=== PATIENT | female | born 1990 | race Caucasian/White ===

== ENCOUNTER 2023-12-23 10:54 | Outpatient (AMB) | payer OTHER, SELFPAY ==
--- NOTE | 2023-12-23 11:08 | A.OFFPC_ITS ---
Vital Signs 12/23/23 11:09 Height 5 ft 4 in Weight 134 lb BMI 23.0 BP 108/80 Blood Pressure Location Rt brachial Position Sitting Pulse 95 Pulse Source Pulse Oximeter Pulse Oximetry (%) 99 Oxygen Delivery Method Room Air Intake Visit Reasons: In House Counsel Request PE Intake Note: Pt is here today as a New Patient for her PE: Last papsmear 08/01/23 Is last menstrual period known: Yes Last menstrual period: 12/10/23 Allergies No Known Allergies Allergy (Verified 12/23/23 11:35) Medication List - Last Reconciled 12/23/23 by Krystle Crain MD loratadine 10 mg PO DAILY PNV no.[id number] 400 mcg-35 mg- 25 mg-5 mg ( Gummies) tabs PO Tobacco use date assessed: 12/23/23 Dental Screening Dental Screen Date: 12/23/23 Did you have a dental visit in the last 12 months?: Yes Did you have a dental problem in the last 6 months where you did not have access to dental care?: No Was dental information given to patient?: Patient has dentist HPI In House Counsel Request PE HPI Details 33 year old lady , new to practice , her e to establish care and for a physical exam . She's up to date with her cervical cancer screening done at [facility] 08/01/2023 which came back negative for malignancy / intraepithelial lesion. She has seasonal allergies for which he takes loratadine as needed. She has been complaining of having frequent anxiety attacks lately, has a lot of stress at work and with family members [facility] Medical History (Updated 12/23/23 @ 11:58 by Krystle Crain MD) Family history of melanoma Family history of hypothyroidism Generalized anxiety disorder Surgical History (Updated 12/23/23 @ 12:05 by Krystle Crain MD) Hx of section Family History (Updated 12/23/23 @ 12:02 by Krystle Crain MD) Father Prostate cancer Diabetes mellitus Essential hypertension Mother Hypothyroidism (acquired) Essential hypertension Maternal Uncle Prostate cancer Paternal Aunt Skin cancer Paternal Grandmother Diabetes mellitus Social History (Updated 12/23/23 @ 12:03 by Krystle Crain MD) Housing: House Patient Tobacco Use Status: Never used Tobacco e-Cigarette/Vaping Use: Never Used service: No Current occupational status: employed Current occupation: Behavioral therapy Cognitive needs: No Hearing needs: No Vision needs: Yes Female Reproductive History Menstrual Date of last menstrual period: 12/10/23 control method: permanent sterilization Permanent Sterilization: Vasectomy Date of last pap smear: 08/01/23 Other: Sees [facility] for routine Pap and pelvic exam Questionnaire PHQ-9 Over the last 2 weeks, how often have you been bothered by any of the following problems? 1. Little interest or pleasure in doing things: not at all 2. Feeling down, depressed, or hopeless: several days 3. Trouble falling or staying asleep, or sleeping too much: not at all 4. Feeling tired or having little energy: several days 5. Poor appetite or overeating: not at all 6. Feeling bad about yourself - or that you are a failure or have let yourself or your family down: several days 7. Trouble concentrating on things, such as reading the newspaper or watching television: several days 8. Moving or speaking so slowly that other people could have noticed. Or the opposite - being so fidgety or restless that you have been moving around a lot more than usual: not at all 9. Thoughts that you would be better off or of hurting yourself in some way: not at all Total score: 4 Depression Screening Interpretation: Negative Depression Screening Done: Yes 73386 - PHQ-9 Billing: Yes Source: Developed by Drs. Camacho White, Yuliaan Villanueva, Elijah Mccall and colleagues, with an educational falguni from [facility]. Thrive Questionnaire I am a: Patient What is your living situation today?: I have a steady place to live Within the past 12 months, did the food you bought not last and you didn't have the money to get more?: Never true Within the past 12 months, did you worry whether your food would run out before you got money to buy more?: Never true Do you have trouble paying for medicines?: No Do you have trouble getting transportation to medical appointments?: No Do you have trouble paying your heating and electricity bill?: No Do you have trouble taking care of your child, family member or friend?: No Do you have trouble with day-to-day activities such as bathing, preparing meals, shopping, managing finances, etc.?: No Are you currently unemployed and looking for a job?: No Are you interested in more education?: Yes Please select the resources that you would like help with: Housing/Skilled Nursing Currently or been in a relationship where the following occur: No concerns reported THRIVE Score: 0 AUDIT C Alcohol Use Questionnaire (AUDIT-C) 1. How often do you have a drink containing alcohol?: Never Total Score: 0 MERON-7 AMB Questionnaire MERON-7 Feeling nervous, anxious, or on edge: 2 = More than half the days Not being able to stop or control worryin = More than half the days Worrying too much about different things: 2 = More than half the days Trouble relaxin = Several days Being so restless that it is hard to sit still: 1 = Several days Becoming easily annoyed or irritable: 1 = Several days Feeling afraid as if something awful might happen: 1 = Several days Total MERON-7 score (0-4 normal; 5-9 mild; 10-14 moderate; 15-21 severe): 10 Source: Developed by Drs. Camacho White, Yuliana Villanueva, Elijah Mccall and colleagues, with an educational falguni from [facility]. MERON-7 Assessment Billing MERON-7 Assessment Tool: MERON-7 Assessment 10643 Review of Systems Const Denies body aches, Denies fatigue, Denies fever(s), Denies headache(s) and Denies weakness Eyes Details: myopia - [facility] Denies change in vision, Denies eye discharge and Denies itchy eyes ENT Denies dizziness, Denies headache(s) and Denies nasal congestion Card Denies chest pain, Denies lightheadedness, Denies palpitations and Denies dyspnea Resp Denies chest congestion, Denies cough, Denies dyspnea and Denies wheezing GI Denies abdominal pain, Denies change in bowel habits and Denies heartburn Denies hematuria, Denies urinary frequency, Denies dysuria and Denies urinary urgency Musc Reports no additional complaints Skin/Breast Denies breast pain, Denies breast mass, Denies lesions and Denies rash Neuro Denies dizziness, Denies headache(s) and Denies weakness Psych Reports as per HPI Endo Denies fatigue, Denies polydipsia, Denies polyuria and Denies palpitations Joao/Lymph Denies easy bruising Aller/Immun Denies itchy eyes, Denies seasonal rhinorrhea and Denies wheezing Physical exam (Primary Care) Vital Signs: Last Vital Signs Pulse 95 12/23/23 11:09 BP 108/80 12/23/23 11:09 Pulse Ox 99 12/23/23 11:09 Oxygen Delivery Method Room Air 12/23/23 11:09 BMI result Body Mass Index 23.0 Tobacco/Smoking Status: Tobacco use Status Tobacco use date assessed 12/23/23 12/23/23 11:15 Patient Tobacco Use Status Never used Tobacco 12/23/23 12:03 e-Cigarette/Vaping Use Never Used 12/23/23 12:03 PHQ-9: PHQ-9 Score PHQ-9: Total score 4 12/26/23 01:14 Depression Screening Interpretation: Negative Currently or been in a relationship where the following occur: No concerns reported Const General: no acute distress and alert Orientation/consciousness: patient oriented x3 HENMT Head: Yes normocephalic Ears: external ears normal, TM's normal bilaterally and EAC's normal General nose exam: Normal external nose present Face and sinus: Yes face symmetric Mouth: Normal oral and palatal mucosa present, tongue normal, oropharynx normal and moist mucous membranes Eyes General: appearance normal, both eyes and all related structures Eyelids: Yes eyelids normal Conjunctivae: conjunctivae normal Sclerae: sclerae normal Pupils: Equal, round and reactive pupils present EOM: EOMs intact bilaterally Neck Neck: Yes full ROM, Yes no lymphadenopathy and Yes supple Thyroid: Thyroid normal Chest Breast/axilla palpation: normal palpation of the breasts Resp Effort & Inspection: normal respiratory effort and able to speak in complete sentences Auscultation: clear to auscultation bilaterally Cardio Rate: regular rate Rhythm: regular rhythm Heart sounds: S1 normal heart sound present and S2 normal heart sound present GI Palpation (GI): Soft to palpation, nontender, no guarding and no masses Auscultation: normal bowel sounds General: Yes no CVA tenderness Back/Spine/Pelvis Back: no CVA tenderness and No back tenderness Skin General skin exam: no rashes or lesions noted Neuro General: patient oriented x3, gait normal, moves all extremities, Normal light touch and pain sensation, no focal motor deficits and CN's II-XI intact bilaterally Cranial nerves: Yes Equal, round and reactive pupils present Cognition (Neuro): normal cognition Gait exam (Neuro): Normal gait present Motor exam (neuro): 5/5 motor strength present throughout Extrem General: Yes normal to inspection, Yes full ROM, Yes no joint enlargement, Yes no pedal edema and Yes normal gait Psych Appearance: grossly normal and well kempt Mental Status: mental status grossly normal Speech and movement: Normal speech and movement present Affect: normal affect Attitude: cooperative Thought process: Normal thought process present Thought content: Normal thought content present Assessment and Plan Assessment & Plan (1) Annual visit for general adult medical examination with abnormal findings: Code(s): Z00.01 - Encounter for general adult medical examination with abnormal findings Plan: Will check appropriate labs. Recommended dental visit every 6 months and regular eye exams, at least every 2 years. Take adequate calcium in diet and vitamin-D 3 at 2000 IU per cap once a day, in addition to weight-bearing exercises to help maintain good muscle tone and weight control. Instructed to do self-breast exam, and recommended to get yearly mammogram, starting at age 40. Goes to [facility] for routine Pap and pelvic exam which is currently up-to-date. Has had COVID vaccines in the past but does not want to get the booster, declines flu vaccine, up-to-date with her Tdap (2) Generalized anxiety disorder: Code(s): F41.1 - Generalized anxiety disorder Plan: Drooling, 50 mg per tablet, advised to initially take half a tablet or 25 mg once a day for the 1st week, and increase dose to a whole tablet or 50 mg on the 2nd week if needed patient declines referral for counseling, will see her back for follow-up in of January. (3) Family history of hypothyroidism: Code(s): Z83.49 - Family history of other endocrine, nutritional and metabolic diseases Plan: Ordered a TSH and free T4 levels patient currently without any symptoms (4) Family history of melanoma: Comment: mother Code(s): Z80.8 - Family history of malignant neoplasm of other organs or systems Plan: Referred to dermatology for her routine skin cancer screening (5) Screening for Malignant Neoplasm of Skin: Code(s): Z12.83 - Encounter for screening for malignant neoplasm of skin Plan: Referred to dermatology for routine skin cancer screening Orders: Orders TSH reflex Free T4 12/23/23 F41.1 - Generalized anxiety disorder, Z13.1 - Encounter for screening for diabetes mellitus, Z13.220 - Encounter for screening for lipoid disorders, Z80.8 - Family history of malignant neoplasm of other organs or systems, Z83.49 - Family history of other endocrine, nutritional and metabolic diseases Complete Blood Count Auto Diff 12/23/23 F41.1 - Generalized anxiety disorder, Z13.1 - Encounter for screening for diabetes mellitus, Z13.220 - Encounter for screening for lipoid disorders, Z80.8 - Family history of malignant neoplasm of other organs or systems, Z83.49 - Family history of other endocrine, nutritional and metabolic diseases Lipid Panel 12/23/23 F41.1 - Generalized anxiety disorder, Z13.1 - Encounter for screening for diabetes mellitus, Z13.220 - Encounter for screening for lipoid disorders, Z80.8 - Family history of malignant neoplasm of other organs or systems, Z83.49 - Family history of other endocrine, nutritional and metabolic diseases Comprehensive [place]. Panel Fast 12/23/23 F41.1 - Generalized anxiety disorder, Z13.1 - Encounter for screening for diabetes mellitus, Z13.220 - Encounter for screening for lipoid disorders, Z80.8 - Family history of malignant neoplasm of other organs or systems, Z83.49 - Family history of other endocrine, nutritional and metabolic diseases Vitamin D 25-OH Total 12/23/23 F41.1 - Generalized anxiety disorder, Z13.1 - Encounter for screening for diabetes mellitus, Z13.220 - Encounter for screening for lipoid disorders, Z80.8 - Family history of malignant neoplasm of other organs or systems, Z83.49 - Family history of other endocrine, nutritional and metabolic diseases Referrals Dermatology Referral Z12.83 - Encounter for screening for malignant neoplasm of skin, Z80.8 - Family history of malignant neoplasm of other organs or systems Medications: New sertraline 50 mg PO DAILY 30 tabs 1RF F41.1 - Generalized anxiety disorder, Z00.01 - Encounter for general adult medical examination with abnormal findings Coding Level of Care Code New Pt Prev Care 18-39yr([id number] Diagnoses Annual visit for general adult medical examination with abnormal findings Z00.01 Generalized anxiety disorder F41.1 Family history of hypothyroidism Z83.49 Family history of melanoma Z80.8 Screening for Malignant Neoplasm of Skin Z12.83 Additional Codes MERON-7 Assessment Billing - MERON-7 Assessment Tool: MERON-7 Assessment 53159 ([id number])
[2023-12-23 11:09] VITALS: BP 108/80; PULSE 95; O2SAT 99; BMI 23.0
== END 2023-12-23 12:19 | disposition home or self-care (01) ==
PROVIDERS: PCP Internal Medicine; Visit Provider Internal Medicine
DX: Z00.00 Encounter for general adult medical examination without abnormal findings (principal); F41.1 Generalized anxiety disorder; Z83.49 Family history of other endocrine, nutritional and metabolic diseases; Z80.8 Family history of malignant neoplasm of other organs or systems; Z12.83 Encounter for screening for malignant neoplasm of skin
CPT/HCPCS: 99385

== ENCOUNTER 2024-01-06 06:01 | Outpatient (REF) | payer OTHER, SELFPAY ==
[2024-01-06 10:20] LABS: MANUAL DIFF FLAG NO
[2024-01-06 10:23] LABS: Basophils Percent Auto 0.8 % (0-2); Eosinophils Absolute Auto 0.1 X10*3/uL (0.0-0.4); Eosinophils Percent Auto 1.9 % (0-4); Hematocrit 37.7 % (37.0-47.0); Hemoglobin 12.3 g/dl (12.0-16.0); Imm Gran Abs Auto 0.02 X10*3/uL (0.00-0.03); Imm Gran Pct Auto 0.4 % (0.0-0.4); Lymphocytes Absolute Auto 1.9 X10*3/uL (1.2-4.9); Lymphocytes Percent Auto 37.4 % (20-40); Mean Corpuscular HGB Conc 32.6 g/dl (31.0-35.0); Mean Corpuscular Hemoglobin 29.9 pg (27.0-33.0); Mean Corpuscular Volume 91.7 fL (80.0-98.0); Mean Platelet Volume 11.2 fL (9.4-12.3); Monocytes Absolute Auto 0.5 X10*3/uL (0.1-1.2); Monocytes Percent Auto 10.2 % (2-11); Neutrophils Absolute Auto 2.6 x10*3/uL (2.0-8.3); Neutrophils Percent Auto 49.3 % (45-73); Platelet Count 268 X10*3/uL (160-400); Red Blood Count 4.11 X10*6/uL (4.20-5.50); White Blood Count 5.2 X10*3/uL (4.8-10.8)
[2024-01-06 10:41] LABS: Alanine Aminotransferase 19 U/L (0-31); Albumin Level 4.4 g/dL (3.5-5.0); Alkaline Phosphatase 73 U/L (39-117); Anion Gap 10 (12-20); Aspartate Amino Transferase 18 U/L (5-31); Bilirubin Total 0.7 mg/dL (0.0-1.0); Blood Urea Nitrogen 14 mg/dL (9-16); Calcium 9.3 mg/dL (8.4-10.2); Carbon Dioxide 28 mmol/L (22-29); Chloride 104 mmol/L (96-108); Cholesterol 127 mg/dL (<200); Estimated Glomerular Filt Rate > 60; Glucose Fasting 81 mg/dL (60-99); HDL Cholesterol 50 mg/dL (>40); LDL Cholesterol Calculated 68 mg/dL (<100); Sodium 138 mmol/L (135-145); Total Protein 7.2 g/dL (6.5-8.0); Triglycerides 48 mg/dL (<150)
[2024-01-06 11:03] LABS: TSH reflex Free T4 1.82 uIU/mL (0.32-4.0)
== END 2024-01-06 06:02 | disposition home or self-care (01) ==
LOC: HO.HMGCLDS 06:01
PROVIDERS: PCP Internal Medicine; Visit Provider Internal Medicine
DX: F41.1 Generalized anxiety disorder (principal); Z83.49 Family history of other endocrine, nutritional and metabolic diseases; Z80.8 Family history of malignant neoplasm of other organs or systems; Z13.220 Encounter for screening for lipoid disorders; Z13.1 Encounter for screening for diabetes mellitus
CPT/HCPCS: 36415; 80053; 80061; 82306; 84443; 85025

== ENCOUNTER 2024-01-16 08:28 | Outpatient (AMB) | payer OTHER, SELFPAY ==
--- NOTE | 2024-01-16 08:33 | MHC.PC.OV ---
Intake Visit Reasons: follow up Anxiety Gsa Coordinator Required: No Allergies No Known Allergies Allergy (Verified 01/16/24 08:53) Medication List - Last Reconciled 01/16/24 by Krystle Crain MD loratadine 10 mg PO DAILY PNV no.[id number] 400 mcg-35 mg- 25 mg-5 mg ( Gummies) tabs PO sertraline 50 mg PO DAILY Tobacco use date assessed: 12/23/23 Dental Screening Dental Screen Date: 12/23/23 HPI follow up Anxiety HPI Details Magda is here for follow-up regarding her anxiety disorder. She was started on sertraline 50 mg once a day, initially has been taking half a tablet once a day but still feels some anxiety creeping in every now and then so she increased her dose to a full dose of 50 mg on January 05. She states that she has been feeling better on this dose, but still gets occasional sleepiness when taking it in the morning. She has been going out , doing her runs, able to go out with the kids with a being so stressed out. Would like to stay on the same dose. [facility] Medical History Family history of melanoma Family history of hypothyroidism Generalized anxiety disorder Surgical History Hx of section Family History Father Prostate cancer Diabetes mellitus Essential hypertension Mother Hypothyroidism (acquired) Essential hypertension Maternal Uncle Prostate cancer Paternal Aunt Skin cancer Paternal Grandmother Diabetes mellitus Social History Housing: House Patient Tobacco Use Status: Never used Tobacco e-Cigarette/Vaping Use: Never Used service: No Current occupational status: employed Current occupation: Behavioral therapy Cognitive needs: No Hearing needs: No Vision needs: Yes Questionnaire PHQ-9 Over the last 2 weeks, how often have you been bothered by any of the following problems? 1. Little interest or pleasure in doing things: not at all 2. Feeling down, depressed, or hopeless: several days 3. Trouble falling or staying asleep, or sleeping too much: not at all 4. Feeling tired or having little energy: several days 5. Poor appetite or overeating: not at all 6. Feeling bad about yourself - or that you are a failure or have let yourself or your family down: several days 7. Trouble concentrating on things, such as reading the newspaper or watching television: several days 8. Moving or speaking so slowly that other people could have noticed. Or the opposite - being so fidgety or restless that you have been moving around a lot more than usual: not at all 9. Thoughts that you would be better off or of hurting yourself in some way: not at all Total score: 4 Depression Screening Interpretation: Negative Depression Screening Done: Yes 72606 - PHQ-9 Billing: Yes Source: Developed by Drs. Camacho White, Yuliana Villanueva, Elijah Mccall and colleagues, with an educational falguni from [employer]. Thrive Questionnaire Date Thrive assessed: 01/16/24 I am a: Patient What is your living situation today?: I have a steady place to live Within the past 12 months, did the food you bought not last and you didn't have the money to get more?: Never true Within the past 12 months, did you worry whether your food would run out before you got money to buy more?: Never true Do you have trouble paying for medicines?: No Do you have trouble getting transportation to medical appointments?: No Do you have trouble paying your heating and electricity bill?: No Do you have trouble taking care of your child, family member or friend?: No Do you have trouble with day-to-day activities such as bathing, preparing meals, shopping, managing finances, etc.?: No Are you currently unemployed and looking for a job?: No Are you interested in more education?: Yes Please select the resources that you would like help with: Housing/Retirement Currently or been in a relationship where the following occur: No concerns reported THRIVE Score: 0 AUDIT C Alcohol Use Questionnaire (AUDIT-C) 1. How often do you have a drink containing alcohol?: Never 3. How often do you have six or more drinks on one occasion?: Never Total Score: 0 Score Reviewed/Action Taken: Yes MERON-7 AMB Questionnaire MERON-7 Date MERON - 7 assessed: 01/16/24 Feeling nervous, anxious, or on edge: 1 = Several days Not being able to stop or control worryin = Not at all Worrying too much about different things: 1 = Several days Trouble relaxin = Not at all Being so restless that it is hard to sit still: 0 = Not at all Becoming easily annoyed or irritable: 0 = Not at all Feeling afraid as if something awful might happen: 0 = Not at all Total MERON-7 score (0-4 normal; 5-9 mild; 10-14 moderate; 15-21 severe): 2 Source: Developed by Drs. Camacho White, Yuliana Villanueva, Elijah Mccall and colleagues, with an educational falguni from [employer]. MERON-7 Assessment Billing MERON-7 Assessment Tool: MERON-7 Assessment 11624 Review of Systems Const Denies body aches, Denies fatigue, Denies fever(s) and Denies headache(s) Eyes Details: myopia - [facility] Denies change in vision ENT Denies dizziness, Denies headache(s) and Denies nasal congestion Card Denies chest pain, Denies lightheadedness, Denies palpitations and Denies dyspnea Resp Denies chest congestion, Denies cough, Denies dyspnea and Denies wheezing GI Denies abdominal pain, Denies change in bowel habits and Denies heartburn Reports no additional complaints Musc Reports no additional complaints Neuro Denies dizziness and Denies headache(s) Psych Reports as per HPI Endo Denies fatigue, Denies polydipsia, Denies polyuria and Denies palpitations Aller/Immun Denies seasonal rhinorrhea and Denies wheezing Physical exam (Primary Care) Tobacco/Smoking Status: Tobacco use Status Tobacco use date assessed 12/23/23 01/16/24 08:36 Patient Tobacco Use Status Never used Tobacco 01/16/24 08:36 e-Cigarette/Vaping Use Never Used 01/16/24 08:36 PHQ-9: PHQ-9 Score PHQ-9: Total score 4 01/16/24 08:36 Depression Screening Interpretation: Negative Thrive Assessment: Date of Thrive Assessment Date Thrive assessed 01/16/24 01/16/24 08:36 Currently or been in a relationship where the following occur: No concerns reported Telehealth Telehealth Telehealth Platform: [employer] Location of provider rendering services: practice address Location of patient: address on file Patient Identification confirmed using: Name, : Yes Telehealth method: video Patient verbally consented to treatment: Yes Patient verbally consented to billing insurance company: Yes Patient informed of any privacy concerns related to visit: Yes Minutes spent on Phone/Video with Pt.: 15 Assessment and Plan Assessment & Plan (1) Generalized anxiety disorder: Code(s): F41.1 - Generalized anxiety disorder Plan: Patient feeling better, with anxiety controlled on sertraline 50 mg per tablet, will continue on same dose. Will see her back for telehealth in 3 months for follow-up Medications: Refilled sertraline 50 mg PO DAILY 90 tabs 1RF F41.1 - Generalized anxiety disorder, Z00.01 - Encounter for general adult medical examination with abnormal findings Coding Level of Care Code Tele Est Pt Level 3 (03008) Diagnoses Generalized anxiety disorder F41.1 Additional Codes MERON-7 Assessment Billing - MERON-7 Assessment Tool: MERON-7 Assessment 97512 ([id number])
== END 2024-01-16 13:25 | disposition home or self-care (01) ==
LOC: HO.HMGC 08:28
PROVIDERS: PCP Internal Medicine; Visit Provider Internal Medicine
DX: F41.1 Generalized anxiety disorder (principal)
CPT/HCPCS: 96127; 99213

== ENCOUNTER 2024-04-16 08:47 | Outpatient (AMB) | payer OTHER, SELFPAY ==
--- NOTE | 2024-04-16 08:46 | MHC.PC.OV ---
Intake Visit Reasons: F/U Anxiety Intake Note: Pt is having a telehealth visit to f/u anxiety Allergies No Known Allergies Allergy (Verified 04/16/24 08:54) Medication List - Last Reconciled 04/16/24 by Krystle Crain MD loratadine 10 mg PO DAILY PNV no.[id number] 400 mcg-35 mg- 25 mg-5 mg ( Gummies) tabs PO sertraline 50 mg PO DAILY Tobacco use date assessed: 04/16/24 Dental Screening Dental Screen Date: 04/16/24 Did you have a dental visit in the last 12 months?: Yes Did you have a dental problem in the last 6 months where you did not have access to dental care?: No Was dental information given to patient?: Patient has dentist HPI F/U Anxiety HPI Details 33-year-old lady here today for follow-up regarding her generalized anxiety disorder. She has been taking sertraline 50 mg 1 tablet once a day which has been helping controlled her anxiety. She was taking it at night, but was having difficulty sleeping with it , and now has switched it back again to taking it in the morning, which has been helping. She already filled her last refill it and would need an another prescription sent to her pharmacy. Has been feeling well with no complaints at present time. [facility] Medical History Family history of melanoma Family history of hypothyroidism Generalized anxiety disorder Surgical History Hx of section Family History Father Prostate cancer Diabetes mellitus Essential hypertension Mother Hypothyroidism (acquired) Essential hypertension Maternal Uncle Prostate cancer Paternal Aunt Skin cancer Paternal Grandmother Diabetes mellitus Social History Housing: House Patient Tobacco Use Status: Never used Tobacco e-Cigarette/Vaping Use: Never Used service: No Current occupational status: employed Current occupation: Behavioral therapy Cognitive needs: No Hearing needs: No Vision needs: Yes Questionnaire Thrive Questionnaire Date Thrive assessed: 01/16/24 MERON-7 AMB Questionnaire MERON-7 Date MERON - 7 assessed: 04/16/24 Feeling nervous, anxious, or on edge: 0 = Not at all Not being able to stop or control worryin = Not at all Worrying too much about different things: 0 = Not at all Trouble relaxin = Not at all Being so restless that it is hard to sit still: 0 = Not at all Becoming easily annoyed or irritable: 0 = Not at all Feeling afraid as if something awful might happen: 0 = Not at all Total MERON-7 score (0-4 normal; 5-9 mild; 10-14 moderate; 15-21 severe): 0 Source: Developed by Drs. Camacho White, Yuliana Villanueva, Elijah Mccall and colleagues, with an educational falguni from [employer]. MERON-7 Assessment Billing MERON-7 Assessment Tool: MERON-7 Assessment 63015 Review of Systems Const Denies body aches, Denies fatigue and Denies fever(s) Eyes Details: myopia - [facility] Denies change in vision ENT Reports no additional complaints Card Denies chest pain, Denies lightheadedness, Denies palpitations and Denies dyspnea Resp Denies chest congestion, Denies cough, Denies dyspnea and Denies wheezing GI Denies abdominal pain, Denies change in bowel habits and Denies heartburn Reports no additional complaints Musc Reports no additional complaints Neuro Reports no additional complaints Psych Reports as per HPI Endo Denies fatigue, Denies polydipsia, Denies polyuria and Denies palpitations Aller/Immun Denies seasonal rhinorrhea and Denies wheezing Physical exam (Primary Care) Tobacco/Smoking Status: Tobacco use Status Tobacco use date assessed 04/16/24 04/16/24 08:47 Patient Tobacco Use Status Never used Tobacco 04/16/24 08:47 e-Cigarette/Vaping Use Never Used 04/16/24 08:47 Thrive Assessment: Date of Thrive Assessment Date Thrive assessed 01/16/24 04/16/24 08:47 Telehealth Telehealth Telehealth Platform: [facility] Location of provider rendering services: practice address Location of patient: address on file Patient Identification confirmed using: Name, : Yes Telehealth method: video Patient verbally consented to treatment: Yes Patient verbally consented to billing insurance company: Yes Patient informed of any privacy concerns related to visit: Yes Minutes spent on Phone/Video with Pt.: 15 Coding Level of Care Code Tele Est Pt Level 3 (28619) Diagnoses Generalized anxiety disorder F41.1 Additional Codes MERON-7 Assessment Billing - MERON-7 Assessment Tool: MERON-7 Assessment 03112 ([id number]) Assessment & Plan Assessment & Plan (1) Generalized anxiety disorder: Code(s): F41.1 - Generalized anxiety disorder Category: Medical Plan: Currently stable and controlled on sertraline 50 mg per tablet taken once a day in a.m.. Will continue with current dose. Refill sent. Will see her back next year on her next physical exam in 01/2025
== END 2024-04-16 09:40 | disposition home or self-care (01) ==
LOC: HO.HMCC 08:47
PROVIDERS: PCP Internal Medicine; Visit Provider Internal Medicine
DX: F41.1 Generalized anxiety disorder (principal)

== ENCOUNTER → 2024-04-16 08:47 | Outpatient (BNVA) | payer OTHER, SELFPAY | PROVIDERS: PCP Internal Medicine; Visit Provider Internal Medicine | DX: F41.1 Generalized anxiety disorder (principal); Z79.899 Other long term (current) drug therapy | CPT/HCPCS: 96127 ==

== ENCOUNTER 2025-02-03 10:55 | Outpatient (AMB) | payer OTHER, SELFPAY ==
--- NOTE | 2025-02-03 11:38 | A.OFFPC_ITS ---
Vital Signs 02/03/25 11:39 Height 5 ft 4 in Weight 139 lb BMI 23.9 BP 110/66 Blood Pressure Location Rt brachial Position Sitting Respiration 15 Pulse 88 Pulse Source Pulse Oximeter Temp 98.0 F Temp Source Oral Pulse Oximetry (%) 100 Oxygen Delivery Method Room Air Intake Visit Reasons: Annual PE Is last menstrual period known: Yes Last menstrual period: 01/27/25 Allergies No Known Allergies Allergy (Verified 02/03/25 11:47) Medication List - Last Reconciled 02/03/25 by Krystle Crain MD cetirizine (Zyrtec) 10 mg PO DAILY PRN multivitamin 1 tab PO DAILY sertraline 50 mg PO DAILY Tobacco use date assessed: 02/03/25 Dental Screening Dental Screen Date: 02/03/25 Did you have a dental visit in the last 12 months?: Yes Did you have a dental problem in the last 6 months where you did not have access to dental care?: No Was dental information given to patient?: Patient has dentist HPI Annual PE HPI Details - The patient is a 34-year-old female pr esenting for a routine physical examination. - Anxiety: Managed with sertraline, geri hopson has been helping - Migraine-like headaches: Occur around menstrual cycle, managed by taking adequate hydration. - Family history of breast cancer: Pater nal grandmother affected, metastasized to bones. - Family history of melanoma: Mother aff ected, patient scheduled for screening. -up-to-date with cervical cancer screengeneva caden, goes to [facility], with last Pap smear done in 2023 showing normal findings [facility] Medical History Family history of melanoma Family history of hypothyroidism Generalized anxiety disorder Surgical History Hx of section Family History Father Prostate cancer Diabetes mellitus Essential hypertension Mother Hypothyroidism (acquired) Essential hypertension Maternal Uncle Prostate cancer Paternal Aunt Skin cancer Paternal Grandmother Diabetes mellitus Social History Housing: House Patient Tobacco Use Status: Never used Tobacco e-Cigarette/Vaping Use: Never Used service: No Current occupational status: employed Current occupation: Behavioral therapy Cognitive needs: No Hearing needs: No Vision needs: Yes Female Reproductive History Menstrual Date of last menstrual period: 01/27/25 control method: permanent sterilization Permanent Sterilization: Vasectomy Questionnaire PHQ-9 Over the last 2 weeks, how often have you been bothered by any of the following problems? 1. Little interest or pleasure in doing things: not at all 2. Feeling down, depressed, or hopeless: not at all 3. Trouble falling or staying asleep, or sleeping too much: not at all 4. Feeling tired or having little energy: not at all 5. Poor appetite or overeating: not at all 6. Feeling bad about yourself - or that you are a failure or have let yourself or your family down: not at all 7. Trouble concentrating on things, such as reading the newspaper or watching television: not at all 8. Moving or speaking so slowly that other people could have noticed. Or the opposite - being so fidgety or restless that you have been moving around a lot more than usual: not at all 9. Thoughts that you would be better off or of hurting yourself in some way: not at all Total score: 0 Source: Developed by Drs. Camacho White, Yuliana Villanueva, Elijah Mccall and colleagues, with an educational falguni from [employer]. Thrive Questionnaire Date Thrive assessed: 01/27/25 I am a: Patient What is your living situation today?: I have a steady place to live Within the past 12 months, did the food you bought not last and you didn't have the money to get more?: Never true Within the past 12 months, did you worry whether your food would run out before you got money to buy more?: Never true Do you have trouble paying for medicines?: No Do you have trouble getting transportation to medical appointments?: No Do you have trouble paying your heating and electricity bill?: No Do you have trouble taking care of your child, family member or friend?: No Do you have trouble with day-to-day activities such as bathing, preparing meals, shopping, managing finances, etc.?: No Are you currently unemployed and looking for a job?: No Are you interested in more education?: Yes Please select the resources that you would like help with: None Currently or been in a relationship where the following occur: No concerns reported THRIVE Score: 0 AUDIT C Alcohol Use Questionnaire (AUDIT-C) 1. How often do you have a drink containing alcohol?: Never 3. How often do you have six or more drinks on one occasion?: Never Total Score: 0 MERON-7 AMB Questionnaire MERON-7 Date MERON - 7 assessed: 04/16/24 Feeling nervous, anxious, or on edge: 1 = Several days Not being able to stop or control worryin = Several days Worrying too much about different things: 1 = Several days Trouble relaxin = Several days Being so restless that it is hard to sit still: 1 = Several days Becoming easily annoyed or irritable: 1 = Several days Feeling afraid as if something awful might happen: 0 = Not at all Total MERON-7 score (0-4 normal; 5-9 mild; 10-14 moderate; 15-21 severe): 6 Source: Developed by Drs. Camacho White, Yuliana Villanueva, Elijah Mccall and colleagues, with an educational falguni from [employer]. MERON-7 Assessment Billing MERON-7 Assessment Tool: MERON-7 Assessment 50430 Review of Systems Const Reports no additional complaints Eyes Details: Goes to [facility] for her routine eye exam ENT Details: Gets dental prophylaxis every six-month Card Reports no additional complaints Resp Reports no additional complaints GI Reports no additional complaints Details: Sees Dr. Genao for her routine pelvic exam and cervical cancer screening Musc Reports no additional complaints Skin/Breast Details: Sees [facility] for routine skin exam Neuro Reports no additional complaints Psych Reports as per HPI Endo Reports no additional complaints Joao/Lymph Reports no additional complaints Aller/Immun Reports no additional complaints Physical exam (Primary Care) Vital Signs: Last Vital Signs Temp 98.0 F 02/03/25 11:39 Pulse 88 02/03/25 11:39 Resp 15 02/03/25 11:39 BP 110/66 02/03/25 11:39 Pulse Ox 100 02/03/25 11:39 Oxygen Delivery Method Room Air 02/03/25 11:39 BMI result Body Mass Index 23.9 Tobacco/Smoking Status: Tobacco use Status Tobacco use date assessed 02/03/25 02/03/25 11:44 Patient Tobacco Use Status Never used Tobacco 02/03/25 11:44 e-Cigarette/Vaping Use Never Used 02/03/25 11:44 PHQ-9: PHQ-9 Score PHQ-9: Total score 0 02/03/25 11:49 Thrive Assessment: Date of Thrive Assessment Date Thrive assessed 01/27/25 02/03/25 11:44 Currently or been in a relationship where the following occur: No concerns reported Const General: no acute distress and alert Orientation/consciousness: patient oriented x3 HENMT Ears: external ears normal, TM's normal bilaterally and EAC's normal General nose exam: Normal external nose present Face and sinus: Yes face symmetric Mouth: Normal oral and palatal mucosa present and moist mucous membranes Eyes General: appearance normal, both eyes and all related structures Eyelids: Yes eyelids normal Conjunctivae: conjunctivae normal Sclerae: sclerae normal Pupils: Equal, round and reactive pupils present EOM: EOMs intact bilaterally Neck Neck: Yes full ROM, Yes no lymphadenopathy and Yes supple Thyroid: Thyroid normal Chest Breast/axilla palpation: normal palpation of the breasts Resp Effort & Inspection: normal respiratory effort and able to speak in complete sentences Auscultation: clear to auscultation bilaterally Cardio Rate: regular rate Rhythm: regular rhythm Heart sounds: S1 normal heart sound present and S2 normal heart sound present GI Palpation (GI): Soft to palpation, nontender, no guarding and no masses Auscultation: normal bowel sounds General: Yes no CVA tenderness Back/Spine/Pelvis Back: no CVA tenderness and No back tenderness Skin General skin exam: no rashes or lesions noted Neuro General: patient oriented x3, gait normal, moves all extremities, Normal light touch and pain sensation, no focal motor deficits and CN's II-XI intact bilaterally Cranial nerves: Yes Equal, round and reactive pupils present Cognition (Neuro): normal cognition Gait exam (Neuro): Normal gait present Motor exam (neuro): 5/5 motor strength present throughout Extrem General: Yes normal to inspection, Yes full ROM, Yes no joint enlargement, Yes no pedal edema and Yes normal gait Psych Appearance: grossly normal and well kempt Mental Status: mental status grossly normal Speech and movement: Normal speech and movement present Affect: normal affect Coding Level of Care Code Est Pt Prev Care 18-39y(26975) Diagnoses Annual visit for general adult medical examination with abnormal findings Z00.01 Generalized anxiety disorder F41.1 Additional Codes MERON-7 Assessment Billing - MERON-7 Assessment Tool: MERON-7 Assessment 02220 ([id number]) Assessment & Plan Assessment & Plan (1) Annual visit for general adult medical examination with abnormal findings: Code(s): Z00.01 - Encounter for general adult medical examination with abnormal findings (2) Generalized anxiety disorder: Code(s): F41.1 - Generalized anxiety disorder Category: Medical Plan Plan Patient was informed and verbally consented to the use of an ambient scribe for clinic note documentation during this visit. 1. Anxiety The patient is managing anxiety with sertraline, which has been effective. Continued monitoring and adherence to medication are recommended. 2. Migraine-Like Headaches The patient experiences migraine-like headaches, particularly around her menstrual cycle, managed by ensuring adequate hydration. No additional interventions were discussed. 3. Preventative Care: Skin Cancer Screening A skin cancer screening is scheduled due to family history of melanoma. Continued vigilance with sun protection is advised. 4. Preventative Care: Vaccinations The patient is up to date with vaccinations and plans to receive a flu shot in the fall. No further vaccinations are currently needed. 5. Preventative Care: Blood Work Blood work is planned to assess cholesterol, fasting glucose, and vitamin D levels. The patient will return for fasting labs. Orders: Orders Basic Metabolic Panel Fasting 02/03/25 F41.1 - Generalized anxiety disorder, Z13.1 - Encounter for screening for diabetes mellitus, Z13.220 - Encounter for screening for lipoid disorders Aspartate Amino Transferase 02/03/25 F41.1 - Generalized anxiety disorder, Z13.1 - Encounter for screening for diabetes mellitus, Z13.220 - Encounter for screening for lipoid disorders Alanine Aminotransferase 02/03/25 F41.1 - Generalized anxiety disorder, Z13.1 - Encounter for screening for diabetes mellitus, Z13.220 - Encounter for screening for lipoid disorders Lipid Panel 02/03/25 F41.1 - Generalized anxiety disorder, Z13.1 - Encounter for screening for diabetes mellitus, Z13.220 - Encounter for screening for lipoid disorders Vitamin D 25-OH Total 02/03/25 F41.1 - Generalized anxiety disorder, Z13.1 - Encounter for screening for diabetes mellitus, Z13.220 - Encounter for screening for lipoid disorders
[2025-02-03 11:39] VITALS: BP 110/66; PULSE 88; RESP 15; TEMP 36.7; O2SAT 100; BMI 23.9
--- OUTSIDE RECORDS SUMMARY | 2025-02-03 12:21 | XMS_ITS ---
Author Name [facility] Organization Unknown Care Team Organization Name Specialty Phone Email Start Date End Da te [facility]ly [facility] 12/17/2024 [facility] 08/26/2024 12/17/2024
== END 2025-02-03 12:09 | disposition home or self-care (01) ==
LOC: HO.HMCC 10:56
PROVIDERS: PCP Internal Medicine; Visit Provider Internal Medicine
DX: Z00.01 Encounter for general adult medical examination with abnormal findings (principal); F41.1 Generalized anxiety disorder

== ENCOUNTER → 2025-02-03 10:55 | Outpatient (BNVA) | payer OTHER, SELFPAY | PROVIDERS: PCP Internal Medicine; Visit Provider Internal Medicine | DX: Z00.00 Encounter for general adult medical examination without abnormal findings (principal); F41.1 Generalized anxiety disorder; G43.909 Migraine, unspecified, not intractable, without status migrainosus | CPT/HCPCS: 96127 ==